=== PATIENT | male | born 1980 | race Caucasian/White ===

== ENCOUNTER 2018-07-05 09:22 | Outpatient (RCR) | payer OTHER | END 2018-08-18 12:15 | disposition home or self-care (01) | LOC: WSOH 09:22 | DX: S60.131A Contusion of right middle finger with damage to nail, initial encounter (principal); W23.0XXA Caught, crushed, jammed, or pinched between moving objects, initial encounter; Y92.59 Other trade areas as the place of occurrence of the external cause; Y99.0 Civilian activity done for income or pay; F17.210 Nicotine dependence, cigarettes, uncomplicated ==

== ENCOUNTER 2021-04-14 10:51 | Emergency (ER) | payer OTHER ==
[~2021-04-14] VITALS: Ht 182.9 cm; Wt 127.3 kg
[2021-04-14 11:15] VITALS: TEMP 98.1
[2021-04-14] MEDS ORDERED: NORCO 325 MG-51 TAB PO (12:51)
[2021-04-14] MEDS ORDERED: MEDROL 4MG DOSPA4 MG PO (12:51)
[2021-04-14 13:13] VITALS: BP 163/99; PULSE 68
== END 2021-04-14 13:17 | disposition home or self-care (01) ==
LOC: COL.ER 10:51
DX: S39.012A Strain of muscle, fascia and tendon of lower back, initial encounter (principal); M54.16 Radiculopathy, lumbar region; X50.0XXA Overexertion from strenuous movement or load, initial encounter; Y92.59 Other trade areas as the place of occurrence of the external cause; Y99.0 Civilian activity done for income or pay
CPT/HCPCS: J1885; J2360

== ENCOUNTER → 2021-06-05 | Outpatient (CLI) | payer OTHER ==
[~2021-06-05] MED LIST: MEDROL 4MG DOSPA4 MG PO; NORCO 325 MG-51 TAB PO
== END ==
LOC: COL.RAD 07:10
DX: M47.817 Spondylosis without myelopathy or radiculopathy, lumbosacral region (principal)

== ENCOUNTER 2024-01-03 08:26 | Emergency (ER) | payer SELFPAY ==
[~2024-01-03] VITALS: Ht 182.9 cm; Wt 134.1 kg
[2024-01-03 08:33] VITALS: TEMP 97.8
[2024-01-03] MEDS ORDERED: Ketorolac 60 MG/2 ML VIAL IM ONE (08:45)
[2024-01-03] MEDS ORDERED: MEDROL 4MG DOSPA4 MG PO (08:49)
[2024-01-03] MEDS ORDERED: PERCOCET 325 MG1 TA2 PO (08:49)
[2024-01-03] MEDS ORDERED: FLEXERIL 1010 MG/TAB PO (08:49)
[2024-01-03 09:00] VITALS: BP 152/92; PULSE 102
== END 2024-01-03 09:02 | disposition home or self-care (01) ==
LOC: COL.ER 08:26
DX: M54.12 Radiculopathy, cervical region (principal); Z88.6 Allergy status to analgesic agent
CPT/HCPCS: J1885

== ENCOUNTER 2024-01-12 09:52 | Outpatient (RCR) | payer OTHER ==
[~2024-01-12 09:52] MED LIST changes: +FLEXERIL 1010 MG/TAB PO; +PERCOCET 325 MG1 TA2 PO
== END 2024-01-16 | disposition home or self-care (01) ==
LOC: WSPT
DX: M25.512 Pain in left shoulder (principal)

== ENCOUNTER 2024-04-04 05:01 | Emergency (ER) | payer OTHER ==
[~2024-04-04] VITALS: Ht 182.9 cm; Wt 136.4 kg
[2024-04-04 05:04] VITALS: TEMP 98.1
[2024-04-04] MEDS ORDERED: NS 1,000 ML IV ONE (05:15)
[2024-04-04] MEDS ORDERED: fentaNYL 50 MCG/ML 2 ML VIAL IV ONE ×2 (05:15→06:00)
[2024-04-04] MEDS ORDERED: NS 50 ML IV SCH (05:36)
[2024-04-04] MEDS ORDERED: Iohexol 300 - 100 ML VIAL IV ONE (05:36)
[2024-04-04 05:38] LABS: BASO # 0.1 K/mm3 (0.0-0.2); BASO % 0.8 % (0.0-2.0); EOS # 0.4 K/mm3 (0.0-0.7); EOS % 3.3 % (0.0-4.0); GRAN # 5.3 K/mm3 (1.4-6.5); GRAN % 47.8 % (42.2-75.2); HEMATOCRIT 46.1 % (42.0-52.0); LYMPH # 4.1 K/mm3 (1.2-3.4); LYMPH % 37.4 % (20.0-51.0); MEAN CELL VOLUME 83 fl (80.0-100.0); MEAN CORPUSCULAR HEMOGLOBIN 29 pg (27-31); MEAN CORPUSCULAR HGB CONC 35 g/dl (33.0-37.0); MEAN PLATELET VOLUME 9.6 fl (7.4-10.4); MONO # 1.1 K/mm3 (0.1-0.6); MONO % 9.8 % (1.7-9.3); PLATELET COUNT 302 K/mm3 (130-400); RED BLOOD COUNT 5.57 M/mm3 (4.20-5.60); REDCELL DISTRIBUTION WIDTH-CV 13.3 % (11.5-14.5)
[2024-04-04 05:47] LABS: INR 1.1 (0.8-3.0); PROTHROMBIN TIME 11.8 SECONDS (9.7-12.8)
[2024-04-04 06:01] LABS: ALBUMIN 4.3 g/dL (3.5-5.0); BILIRUBIN,TOTAL 0.6 mg/dL (0.2-1.2); C-REACTIVE PROTEIN 0.76 mg/dL (0.00-0.50); CALCIUM 10.6 mg/dL (8.4-10.2); CREATININE, serum 1.27 mg/dL (0.72-1.25); POTASSIUM 3.8 mEq/L (3.5-4.5); TOTAL PROTEIN 7.7 g/dl (6.2-8.1)
[2024-04-04 06:02] LABS: COLLECTION METHOD CLEAN CATCH
[2024-04-04 06:10] LABS: PH 7.5 (5.0-8.5); URINE APPEARANCE CLEAR (CLEAR/HAZY); URINE BLOOD 2+ (NEGATIVE); URINE COLOR YELLOW (YELLOW); URINE GLUCOSE NEGATIVE (NEGATIVE); URINE KETONE NEGATIVE (NEGATIVE); URINE NITRATE NEGATIVE (NEGATIVE); URINE PROTEIN(semi-quant) NEGATIVE (NEGATIVE); URINE UROBILINOGEN 0.2 E.U/dL (0.2-1.0)
[2024-04-04] MEDS ORDERED: Ketorolac 15 MG/ML VIAL IV ONE (06:45)
[2024-04-04] MEDS ORDERED: Home HYDROcodone/Acetaminophen 7.5/325 MG #4 TABS/PACK PO ONE (07:30)
[2024-04-04 07:40] VITALS: BP 167/105; PULSE 87
== END 2024-04-04 07:44 | disposition home or self-care (01) ==
LOC: COL.ER 05:01
PROVIDERS: Emergency Medicine
DX: N20.1 Calculus of ureter (principal)
CPT/HCPCS: J1885; J3010; J7030; Q9967

== ENCOUNTER 2024-04-06 03:59 | Day surgery (SDC) | payer OTHER ==
[~2024-04-06] VITALS: Ht 182.9 cm; Wt 135.5 kg
[2024-04-06] VITALS (11 sets, daily range): BP systolic 123–163; BP diastolic 81–102; PULSE 71–88; TEMP 97.6–98.2
[2024-04-06] MEDS ORDERED: LR 1,000 ML IV ONE (04:15)
[2024-04-06] MEDS ORDERED: Ondansetron 4 MG/2 ML VIAL IV ONE (04:15)
[2024-04-06] MEDS ORDERED: HYDROmorphone 0.5 MG/0.5 ML SYRINGE IV ONE ×2 (04:15→06:30)
[2024-04-06 04:41] LABS: COLLECTION METHOD CLEAN CATCH
[2024-04-06 04:45] LABS: BASO # 0.1 K/mm3 (0.0-0.2); BASO % 0.5 % (0.0-2.0); EOS # 0.2 K/mm3 (0.0-0.7); EOS % 2.3 % (0.0-4.0); GRAN # 7.1 K/mm3 (1.4-6.5); GRAN % 66.7 % (42.2-75.2); HEMATOCRIT 47.1 % (42.0-52.0); HEMOGLOBIN 16.6 g/dl (13.5-18.0); LYMPH # 2.3 K/mm3 (1.2-3.4); LYMPH % 21.9 % (20.0-51.0); MEAN CELL VOLUME 82 fl (80.0-100.0); MEAN CORPUSCULAR HEMOGLOBIN 29 pg (27-31); MEAN CORPUSCULAR HGB CONC 35 g/dl (33.0-37.0); MEAN PLATELET VOLUME 9.6 fl (7.4-10.4); MONO # 0.8 K/mm3 (0.1-0.6); PLATELET COUNT 300 K/mm3 (130-400); RED BLOOD COUNT 5.72 M/mm3 (4.20-5.60); REDCELL DISTRIBUTION WIDTH-CV 13.2 % (11.5-14.5)
[2024-04-06 04:53] LABS: URINE APPEARANCE CLEAR (CLEAR/HAZY); URINE BLOOD 2+ (NEGATIVE); URINE COLOR YELLOW (YELLOW); URINE GLUCOSE NEGATIVE (NEGATIVE); URINE KETONE NEGATIVE (NEGATIVE); URINE NITRATE NEGATIVE (NEGATIVE); URINE PROTEIN(semi-quant) TRACE (NEGATIVE); URINE UROBILINOGEN 0.2 E.U/dL (0.2-1.0)
[2024-04-06 05:04] LABS: ALBUMIN 4.3 g/dL (3.5-5.0); BILIRUBIN,TOTAL 0.5 mg/dL (0.2-1.2); C-REACTIVE PROTEIN 0.58 mg/dL (0.00-0.50); CALCIUM 10.7 mg/dL (8.4-10.2); CREATININE, serum 1.08 mg/dL (0.72-1.25); POTASSIUM 3.3 mEq/L (3.5-4.5); TOTAL PROTEIN 7.7 g/dl (6.2-8.1)
[2024-04-06] MEDS ORDERED: COZAAR 50MG50 MG/TAB PO (06:44)
[2024-04-06] MEDS ORDERED: SYNTHROID0.075 MG/T PO (06:44)
[2024-04-06] MEDS ORDERED: NORVASC 10MG10 MG PO (06:45)
[2024-04-06] MEDS ORDERED: LYRICA 75MG CAP75 MG PO (06:45)
--- NOTE | 2024-04-06 07:55 | NUR ---
Patient to room 314 from the ED by wheelchair. A&Ox4. Independent with ambulation. VSS. IV CDI. Reports pain in RT flank, pain medication not requested. Nurse oriented the patient to location, call light and room. Patient NPO for a procedure. No further needs expressed. Call light within reach
[2024-04-06] MEDS ORDERED: HCTZ 25MG TAB25 MG PO (07:59)
[2024-04-06] MEDS ORDERED: EPA FISH OIL1 SGL PO (08:00)
[2024-04-06] MEDS ORDERED: diphenhydrAMINE 50 MG/ML 1 ML VIAL IV PRN (08:00)
[2024-04-06] MEDS ORDERED: diphenhydrAMINE 25 MG CAP PO PRN (08:00)
[2024-04-06] MEDS ORDERED: VITAMIN D31000 I1 PO (08:00)
[2024-04-06] MEDS ORDERED: Ketorolac 15 MG/ML VIAL IV SCH (08:00)
[2024-04-06] MEDS ORDERED: Ondansetron 4 MG/2 ML VIAL IV PRN ×2 (08:00→14:00)
[2024-04-06] MEDS ORDERED: D5W 1,000 ML IV SCH (08:00)
[2024-04-06] MEDS ORDERED: Naloxone 0.4 MG/ML VIAL IV PRN (08:00)
[2024-04-06] MEDS ORDERED: HYDROmorphone PCA 0.2 MG/ML 30 ML VIAL IV SCH (08:00)
[2024-04-06] MEDS ORDERED: NS 1,000 ML IV SCH (08:00)
[2024-04-06] MEDS ORDERED: MOTRIN 200200 MG/TAB PO (08:01)
[2024-04-06] MEDS ORDERED: MOBIC 7.5MG7.5 MG PO (08:02)
[2024-04-06] MEDS ORDERED: MOBIC15 MG PO (10:19)
--- NOTE | 2024-04-06 13:03 | NUR ---
Patient down for a procedure
[2024-04-06] MEDS ORDERED: Lidocaine PF 2% (20 MG/ML) 5 ML VIAL ONE (13:25)
[2024-04-06] MEDS ORDERED: Ondansetron 4 MG/2 ML VIAL ONE (13:25)
[2024-04-06] MEDS ORDERED: dexAMETHasone 10 MG/ML VIAL ONE (13:25)
[2024-04-06] MEDS ORDERED: NS 10 ML IV ONE (13:25)
[2024-04-06] MEDS ORDERED: fentaNYL 50 MCG/ML 2 ML VIAL ONE (13:26)
[2024-04-06] MEDS ORDERED: Lidocaine 2% (20 MG/ML) 20 ML UROJET UR ONE (13:51)
[2024-04-06] MEDS ORDERED: droPERidol 2.5 MG/ML 2 ML VIAL IV PRN (14:00)
[2024-04-06] MEDS ORDERED: fentaNYL 50 MCG/ML 1 ML SYRINGE/VIAL [PACU/SDC ONLY] IV PRN (14:00)
[2024-04-06] MEDS ORDERED: Meperidine 50 MG/ML 1 ML VIAL IV PRN (14:00)
[2024-04-06] MEDS ORDERED: Morphine 2 MG/1 ML VIAL [PACU/SDC ONLY] IV PRN (14:00)
[2024-04-06] MEDS ORDERED: HYDROmorphone 1 MG/1 ML SYRINGE [PACU/SDC ONLY] IV PRN (14:00)
[2024-04-06] MEDS ORDERED: hydrALAZINE 20 MG/ML 1 ML VIAL IV PRN (14:00)
--- NOTE | 2024-04-06 14:00 | NUR ---
Patient in and out of the bathroom. Taking off VS monitoring equipment. PAtient states the urge to void. PAtient not telling the nurse and unable to get complete post op vs. Patient A&Ox4. VSS. IV CDI. Independent in the room. Call light within reach. at the bedside trying to talk/explain to the to listen to nursing staff
[2024-04-06] MEDS ORDERED: PERCOCET 325 MG1 TA2 PO (14:14)
[2024-04-06] MEDS ORDERED: FLOMAX 0.40.4 MG/CAP PO (14:14)
[2024-04-06] MEDS ORDERED: oxyCODONE/Acetaminophen 5-325 MG TAB PO PRN (14:15)
[2024-04-06] MEDS ORDERED: Ketorolac 15 MG/ML VIAL IV PRN (14:15)
[2024-04-06] MEDS ORDERED: Hyoscyamine 0.125 MG Sublingual TAB SL ONE (14:53)
[2024-04-06] MEDS ORDERED: Hyoscyamine 0.125 MG Sublingual TAB SL PRN (15:30)
--- NOTE | 2024-04-06 15:45 | NUR ---
Patient to room 314 from a procedure by bed. A&Ox4. VSS. IV CDI, fluids by gravity. Patient ambulated to the bathroom independently. Post op VS monitored. Nurse oriented the patient to location, call light and room. No further needs expressed. Call light within reach
--- NOTE | 2024-04-06 17:22 | NUR ---
Discharge paperwork reviewed with the patient. PAtient and family verbalized an understanding to follow doctors orders. IV removed, tip intact. Gauze and coban applied. PAtient ambulated independently to awaiting vehicle. No further needs expressed
[2024-04-06] MEDS ORDERED: Sennosides/Docusate 8.6-50 MG TAB PO SCH (21:00)
== END 2024-04-06 17:25 | disposition home or self-care (01) ==
LOC: COL.ER 03:59 → MEDICAL 07:35 → COL.ER 07:35 → SDCO 07:35 → MEDICAL 07:35 → SDCO 17:25
PROVIDERS: Family Medicine
DX: N20.2 Calculus of kidney with calculus of ureter (principal)
CPT/HCPCS: OP; C1769; C2617; J0360; J0690; J1100; J1170; J1885; J1920; J2405; J2704; J3010; J7030; J7120

== ENCOUNTER 2024-04-13 11:51 | Day surgery (SDC) | payer OTHER ==
[~2024-04-13] VITALS: Ht 182.9 cm; Wt 137.5 kg
[~2024-04-13 11:51] MED LIST changes: +COZAAR 50MG50 MG/TAB PO; +EPA FISH OIL1 SGL PO; +FLOMAX 0.40.4 MG/CAP PO; +Famotidine 20 MG TAB PO SCH; +HCTZ 25MG TAB25 MG PO; +HYDROmorphone 1 MG/1 ML SYRINGE [PACU/SDC ONLY] IV PRN; +LR 1,000 ML IV SCH; +LYRICA 75MG CAP75 MG PO; +MOBIC 7.5MG7.5 MG PO; +MOBIC15 MG PO; +MOTRIN 200200 MG/TAB PO; +NORVASC 10MG10 MG PO; +Ondansetron 4 MG/2 ML VIAL IV PRN; +SYNTHROID0.075 MG/T PO; +VITAMIN D31000 I1 PO; +droPERidol 2.5 MG/ML 2 ML VIAL IV PRN; +fentaNYL 50 MCG/ML 1 ML SYRINGE/VIAL [PACU/SDC ONLY] IV PRN; +hydrALAZINE 20 MG/ML 1 ML VIAL IV PRN
[2024-04-13 12:45] VITALS: BP 155/87; PULSE 77; TEMP 97.7
[2024-04-13] MEDS ORDERED: NS 20 ML IV ONE (13:03)
[2024-04-13] MEDS ORDERED: fentaNYL 50 MCG/ML 2 ML VIAL ONE (13:03)
[2024-04-13] MEDS ORDERED: Ondansetron 4 MG/2 ML VIAL ONE (13:03)
[2024-04-13] MEDS ORDERED: Ketorolac 30 MG/ML VIAL ONE (13:03)
[2024-04-13] MEDS ORDERED: dexAMETHasone 10 MG/ML VIAL ONE (13:03)
[2024-04-13] MEDS ORDERED: Lidocaine 2% (20 MG/ML) 20 ML UROJET UR ONE (14:37)
[2024-04-13] MEDS ORDERED: oxyCODONE/Acetaminophen 5-325 MG TAB PO PRN (14:45)
[2024-04-13] MEDS ORDERED: Hyoscyamine 0.125 MG Sublingual TAB SL PRN (14:45)
[2024-04-13] MEDS ORDERED: Ketorolac 15 MG/ML VIAL IV PRN (14:45)
[2024-04-13 15:20] VITALS: BP 134/78; PULSE 79; TEMP 97.9
[2024-04-13 15:28] VITALS: TEMP 97.9
[2024-04-13 15:35] VITALS: BP 131/83; PULSE 80
[2024-04-13 15:50] VITALS: BP 140/89; PULSE 80
--- NOTE | 2024-04-13 16:36 | NUR ---
1520: PT TO BAY 7 PER CART FROM PACU. REPORT RECEIVED. ALERT AND ORIENTED AND EATING ICE CHIPS. VSS. BREATHING EVEN AND UNLABORED. PT DENIES PAIN AND NAUSEA. REQUESTING MORE ICE CHIPS AND MUFFIN. NO FURTHER NEEDS NOTED. RESTING IN COT. CALL LIGHT IN REACH. 1535: PT ALERT AND ORIENTED. VSS. DENIES PAIN AND NAUSEA. AMBULATED TO BATHROOM WITH STAND-BY ASSIST. PT STATED HE URINATED A LARGE AMOUNT OF URINE. STATING URINE WAS BLOODY. REQUESTING ANOTHER MUFFIN. NO FURTHER NEEDS NOTED. RESTING IN COT. CALL LIGHT IN REACH. 1550: PT ALERT AND ORIENTED. VSS. DENIES PAIN AND NAUSEA. CONTINUES TO TOLERATE MUFFIN AND ICE CHIPS. NO FURTHER NEEDS NOTED. RESTING IN COT. CALL LIGHT IN REACH. AT BEDSIDE. 1555: IV DC'D AT THIS TIME. PT DENIES ASSISTANCE WITH DRESSING. AT BEDSIDE. 1600: DISCHARGE EDUCATION COMPLETED. PT STATED UNDERSTANDING OF INSTRUCTIONS. DISCHARGE PAPERWORK GIVEN TO PT. 1605: PT OFF UNIT PER WHEELCHAIR. PT DC'D TO HOME [facility] PER PERSONAL VEHICLE.
== END 2024-04-13 16:05 | disposition home or self-care (01) ==
LOC: SDCO 11:51
DX: N20.2 Calculus of kidney with calculus of ureter (principal)
CPT/HCPCS: C1769; C2617; J0690; J1100; J1885; J2405; J3010; J7120